=== PATIENT | female | born 1975 | race Caucasian/White ===

== ENCOUNTER 2016-10-26 18:42 | Emergency (ER) | payer OTHER ==
--- NOTE | ~2016-10-26 | CR63 ---
[facility]. [facility] A Service of 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 : 1975 SEX: F STUDY DATE/TIME: 10/26/2016 20:08 UNIT: SED ROOM: STUDY DESCRIPTION: CR Chest 2 View Attending Physician: Mariluz Hodgson A.P.R.N. Ordering Physician: Mariluz Hodgson A.P.R.N. Primary Care Physician: Sally Ledbetter M.D. MEDICAL IMAGING REPORT This report is preliminary unless electronic signature is present. EXAM Chest PA and lateral, 10/26/2016 HISTORY Sore throat, headache and cough for 3 days. Benign essential hypertension. FINDINGS PA and lateral examination of the chest upright shows a good expansion of the parenchyma with a normal distribution of the pulmonary vascularity. There is no indication of congestion, effusion, infiltrate, tumor, or nodular density. The pleural reflections and diaphragmatic contours are normal. The cardiac silhouette and mediastinal anatomy is within normal limits. IMPRESSION Normal chest. Dictated by... Lewis Barragan M.D. THIS IS AN ELECTRONICALLY VERIFIED REPORT Lewis Barragan M.D. at 10/27/2016 2:18 PM MARY/ravindra TD: 10/27/2016 04:10 JOB #: [id number] MEDICAL IMAGING REPORT
[~2016-10-26 18:42] MED LIST: B/P MED; KETOPROFEN PO; LIPITOR40 MG; PEN-VEE K PO; SUMATRIPTAN SUC50 MG PO; VISCOUS XYLOCAINE PO; XANAX0.5 M1 PO
[2016-10-26 19:42] LABS: INFLUENZA A POS (NEG); INFLUENZA B NEG (NEG)
== END 2016-10-26 20:50 | disposition home or self-care (01) ==
LOC: SED 18:42
PROVIDERS: Nurse Practitioner
DX: J10.1 Influenza due to other identified influenza virus with other respiratory manifestations (principal)
CPT/HCPCS: 71020; 87651; 87804; 94640; 99283

== ENCOUNTER → 2017-02-28 | Outpatient (CLI) | payer OTHER ==
--- NOTE | ~2017-02-28 | MY11 ---
[facility] A Service of [facility] RADIOLOGY TEXT RESULTS PATIENT: MARQUEZ LAZO LOCATION: [facility] ACC #: [id number] : 75 UNIT #: [id number] AGE: [address]: Sally Ledbetter MD SEX: F ORDER DR: [id number] [place] [id number] O MR#: [id number] Acc #: [id number] NAME: MARQUEZ LAZO : 1975 SEX: F STUDY DATE/TIME: 02/28/2017 10:37 UNIT: [facility] ROOM: STUDY DESCRIPTION: MY Mammogram Screening Dig Rian Attending Physician: Sally Ledbetter M.D. Referring Physician: Sally Ledbetter M.D. Ordering Physician: Sally Ledbetter M.D. Primary Care Physician: Sally Ledbetter M.D. MEDICAL IMAGING REPORT This report is preliminary unless electronic signature is present. EXAM Digital screening mammogram with CAD. INDICATIONS Routine screening. PROCEDURE Bilateral CC and MLO views obtained on a digital mammography. FDA-approved CAD device utilized. COMPARISON 03/09/2015 FINDINGS Scattered fibroglandular density. No dominant mass or suspicious calcification. IMPRESSION Negative screening mammogram; screening interval of 1 year is suggested. Patients over the age of 40 are entered into a reminder system with target due date for the next mammogram. A result letter will also be sent to the patient. BIRADS: 1 Negative Dictated by... Jerry Keith M.D. THIS IS AN ELECTRONICALLY VERIFIED REPORT [facility] A Service of [facility] RADIOLOGY TEXT RESULTS PATIENT: MARQUEZ LAZO LOCATION: [facility] : 75 UNIT #: [id number] AGE: [address]: Sally Ledbetter MD SEX: F ORDER DR: Jerry Kieth M.D. at 03/01/2017 7:12 AM MARQUEZ/genny TD: 02/28/2017 18:24 JOB #: [id number] MEDICAL IMAGING REPORT Page 1 of 1
== END | disposition home or self-care (01) ==
LOC: SMAM 09:45
DX: Z12.31 Encounter for screening mammogram for malignant neoplasm of breast (principal)
CPT/HCPCS: G0202